=== PATIENT | female | born 1975 | race Caucasian/White ===

== ENCOUNTER 2017-10-25 11:53 | Day surgery (SDC) | payer OTHER ==
[2017-10-25] MEDS ORDERED: PROPOFOL 40 ML (14:29)
[2017-10-25] MEDS ORDERED: LIDOCAINE 2% (SDV) 5 ML INJ (14:29)
== END 2017-10-25 16:25 | disposition home or self-care (01) ==
LOC: GIL 11:53
DX: K29.50 Unspecified chronic gastritis without bleeding (principal); E66.9 Obesity, unspecified; Z68.31 Body mass index [BMI] 31.0-31.9, adult; Z88.8 Allergy status to other drugs, medicaments and biological substances
CPT/HCPCS: 43239; 84703; 88305; 88312